=== PATIENT | male | born 1995 | race Caucasian/White ===

== ENCOUNTER 2017-09-17 15:19 | Observation (INO) | payer OTHER ==
[~2017-09-17] VITALS: Ht 180.3 cm; Wt 74.8 kg
--- NOTE | 2017-09-17 15:19 | NUR ---
Patient transferred to bed 8 via wheelchair by bud, accompanied by family. RN evaluating patient at bedside.
--- NOTE | 2017-09-17 15:20 | NUR ---
Dr. Hanks evaluating patient at bedside.
--- NOTE | 2017-09-17 15:20 | NUR ---
pt pulled out of car---unresponsive, no gag reflex,
[2017-09-17 15:23] VITALS: BP 98/64
[2017-09-17] MEDS ORDERED: FLUMAZENIL 0.5 MG/5 ML VIAL IVP STA ×2 (15:33)
[2017-09-17] MEDS ORDERED: ONDANSETRON 4 MG/2 ML VIAL IVP STA (15:35)
[2017-09-17] MEDS ORDERED: FLUMAZENIL 0.5 MG/5 ML VIAL IVP ONE ×2 (15:35→15:39)
[2017-09-17] MEDS ORDERED: NALOXONE PFS 2 MG/2 ML SYR ONE (15:40)
[2017-09-17] MEDS ORDERED: ONDANSETRON 4 MG/2 ML VIAL ONE (15:43)
[2017-09-17] MEDS ORDERED: NACL 0.9% 1,000 ML IV ONE ×2 (15:45→16:25)
[2017-09-17 15:49] LABS: BASOPHILS # (AUTO) 0.2 K/uL (0.00-0.22); HEMATOCRIT 33.1 % (36-52); HEMOGLOBIN 10.9 g/dL (12.0-18.0); MEAN CORPUSCULAR HEMOGLOBIN 29 pg (27-31); MEAN CORPUSCULAR HGB CONC 33 g/dL (33-37); MEAN CORPUSCULAR VOLUME 89 fL (80-94); MONOCYTES # (AUTO) 0.1 K/uL (0.8-1.0); NEUTROPHILS # (AUTO) 1.4 K/uL (1.8-7.7); PLATELET COUNT (AUTO) 197 K/uL (140-450); RED BLOOD CELL COUNT(AUTO) 3.71 MIL/uL (4.20-6.10); RED CELL DISTRIBUTION WIDTH 15.6 % (11.6-13.7); WHITE BLOOD COUNT (AUTO) 2.7 K/uL (4.8-10.8)
--- NOTE | 2017-09-17 15:50 | NUR ---
PT REQUESTED TO GO TO RESTROOM---PROVIDED URINAL TO PT AND INFORMED PT WE FEEL HE IS UNSTEADY AND UNSAFE TO GO TO RESTROOM. SOME PRIVACY PROVIDE, CURTAINS DRAWN. PT SAT TO EDGE OF [facility], REMOVED IV LINE FROM PIV. PT DEMANDED TO LEAVE, DAWNED HIS JACKET. PT IS ORIENTED TO NAME ONLY, UNABLET TO ANSWER YEAR, PLACE, EVENT, OR ANY PHONE NUMBERS TO FRIENDS OR FAMILY. PT UNSTEADY TO STAND BECOMING AGGRESSIVE, THREATENED "I WILL FUCK UP YOU, I DON'T LEAVE". INFORMED PT WE CAN NOT ALLOW HIM TO LEAVE JUST YET DUE TO HIS CONDITION AND THE MEDICATION WE GAVE HIM IS SHORT ACTING AND HE MAY PASS OUT AGAIN AND HURT HIMSELF. PT REMAINS AGGRESSIVE AND UNCOOPERATIVE. YOBANY EMT PLACED AT BEDSIDE TO REDIRECT PT FROM GETTING OUT OF [facility] AND POSSIBLY INJURING HIMSELF.
--- NOTE | 2017-09-17 15:55 | NUR ---
patient is alert but confused, unable to safely navigate the community, is not able to communicate in complete sentences, or thoughts. Paitient is unsafe on his own and is trying to leave. Patient has been educated that the medicine he was given for his overdose only works for short periods of time, he is not comprehending this information nor that he is in an unsafe situation at this moment. [facility] at [facility] as well as security.
[2017-09-17 15:58] LABS: CARBON DIOXIDE 34.1 mmol/L (21-32); CREATININE 1.1 mg/dL (0.7-1.3); POTASSIUM 4.1 mmol/L (3.5-5.1)
[2017-09-17 16:03] LABS: ACETAMINOPHEN < 0.5 ug/ml (10-30); ALBUMIN 3.6 g/dL (3.4-5.0); SALICYLATE < 2.8 mg/dL (2.8-20.0)
--- NOTE | 2017-09-17 16:08 | NUR ---
SECURITY CALLED, PT BECOMING CONFRONTATIONAL. REMAINS ALTERED, NOTIFIED.
--- NOTE | 2017-09-17 16:09 | NUR ---
patient refusing to stay in bed, attempting to leave in an usafe condition, all attempts to talk patient out of leaving were failed. Patient severly confused, patient placed back in bed and placed in 3 point restraints for his safety. Restraints placed on bilat wrists and right ankle. EMT at bedside as a sitter
--- NOTE | 2017-09-17 16:32 | NUR ---
ATTEMPTED TO CALL PT'S BROTHER LISTED ON PT'S FACE SHEET---[phone] LEFT MESSAGE TO RETURN CALL TO [facility] [phone]
--- NOTE | 2017-09-17 16:41 | NUR ---
patient resting in bed, restraints continue to be monitered, able to fit 1-2 fingers underneath each restraint. All extremities are WNL. Patient is not in resperatory distress at this time. EMT at bedside as a sitter
--- NOTE | 2017-09-17 16:57 | NUR ---
Restraints removed, patient sleeping in bed, ER Dr. Hanks at bedside re-evaluating patient
--- NOTE | 2017-09-17 17:51 | NUR ---
patient sleeping in bed, no resperatory distress, head of bed raised at 30 degree angle.
[2017-09-17] MEDS ORDERED: ONDANSETRON 4 MG/2 ML VIAL IVP PRN (18:30)
[2017-09-17] MEDS ORDERED: POTASSIUM CHLORIDE 40 MEQ, LIDOCAINE 1% 25 MG in NACL 0.9% 250 ML IV PRN (18:30)
[2017-09-17] MEDS ORDERED: MAGNESIUM OXIDE 400 MG TAB PO PRN (18:30)
[2017-09-17] MEDS ORDERED: MAG SULF 2000 MG/WATER PREMIX 50 ML IV PRN (18:30)
[2017-09-17] MEDS ORDERED: POTASSIUM CHLORIDE 10 MEQ TABER PO PRN (18:30)
[2017-09-17] MEDS ORDERED: DEXT 5% / NACL 0.9% 500 ML IV ONE (18:30)
[2017-09-17] MEDS ORDERED: IPRATROPIUM 0.02% 0.5 MG/2.5 ML NEBU INH PRN (18:30)
[2017-09-17] MEDS ORDERED: guaiFENesin DM 200/20 MG-10 ML 10 ML UDC PO PRN (18:30)
[2017-09-17] MEDS ORDERED: LORazepam 2 MG/ML VIAL IVP PRN (18:30)
[2017-09-17] MEDS ORDERED: ALBUTEROL 0.083% 2.5 MG/3 ML NEBU INH PRN (18:30)
[2017-09-17] MEDS ORDERED: ACETAMINOPHEN 325 MG TAB PO PRN (18:30)
[2017-09-17] MEDS ORDERED: ACETAMINOPHEN 650 MG SUPP RC PRN (18:30)
[2017-09-17 18:36] LABS: APPEARANCE,URINE CLEAR (CLEAR); BILIRUBIN,URINE NEGATIVE (NEGATIVE); BLOOD, URINE NEGATIVE (NEGATIVE); COLOR,URINE YELLOW (YELLOW); LEUKOCYTE ESTERASE ,URINE NEGATIVE (NEGATIVE); NITRITE, URINE NEGATIVE (NEGATIVE); UGLUCOSE NEGATIVE (NEGATIVE)
[2017-09-17 18:48] LABS: BARBITURATE, URINE NEG. ng/ml (NEG <=200); BENZODIAZEPINE, URINE POS. ng/mL (NEG <=200); CANNABINOID, URINE NEG. ng/mL (NEG <=50); COCAINE, URINE NEG. ng/mL (NEG <=300); OPIATE, URINE POS. ng/mL (NEG <=2000); PHENCYCLIDINE SCREEN,URINE NEG. ng/mL (NEG <=25)
--- NOTE | 2017-09-17 18:48 | NUR ---
Pt report given to Alissa. Transfer of care at this time.
[2017-09-17 19:15] VITALS: BP 109/65
--- NOTE | 2017-09-17 19:15 | NUR ---
PATIENT ADMITTED TO THE UNIT FROM ER VIA [place]. RECEIVED REPORT FROM MORNING NURSE. PATIENT ASLEEP, BUT AROUSABLE. NO SIGNS AND SYMPTOMS OF DISTRESS NOTED. VITAL SIGNS WITHIN NORMAL LIMITS. IV SITE NOTED ON LEFT AC, SALINE LOCKED. PATIENT ON O2 3L NC. BED IN LOWEST POSITION, SIDE RAILS UP AND CALL LIGHT WITHIN REACH. WILL CONTINUE TO MONITOR.
--- NOTE | 2017-09-17 19:48 | NUR ---
IVF D5NS 500ML STARTED, TO RUN AT 100ML/HR.
[2017-09-17 20:00] VITALS: BP 111/69
--- NOTE | 2017-09-17 22:00 | NUR ---
CHECKED ON PATIENT. PATIENT IS STILL SLEEPING. NO SIGNS AND SYMPTOMS OF DISTRESS NOTED. BED IN LOWEST POSITION, SIDE RAILS UP AND CALL LIGHT WITHIN REACH
--- NOTE | 2017-09-17 23:29 | NUR ---
IVF D5NS 500ML STARTED, TO RUN AT 100ML/HR. Addendum: 09/18/17 at 0154 by Wilfredo White RN WRONG TIME. IVF STARTED AT 1947
[2017-09-18] VITALS: BP 123/92
--- NOTE | 2017-09-18 00:48 | NUR ---
IVF D5NS 500ML FINISHED
--- NOTE | 2017-09-18 01:00 | NUR ---
CHECKED ON PATIENT, PATIENT VOIDED IN PANTS. COMMERCIAL RETOUCHER ASSISTED WITH CHANGE OF SHEETS AND GOWN. PATIENT WAS ABLE TO WAKE UP FOR A SHORT TIME. WE EXPLAINED THAT WE WERE CHANGING THE SOAKED SHEETS. PATIENT VERBALIZED UNDERSTANDING.
--- NOTE | 2017-09-18 01:37 | NUR ---
DR. WANG NOTIFIED OF PATIENT'S CALCIUM LEVEL OF 8.3. ORDERS RECEIVED.
--- NOTE | 2017-09-18 02:53 | NUR ---
AFTER I CAME BACK FROM BREAK, I CHECKED ON PATIENT. MEDICAL ASSISTANT OB GYN REPORTED THAT PATIENT TRIED GETTING OUT OF BED TO USE RESTROOM. PATIENT WAS CONFUSED AND HIS GAIT WAS UNSTEADY SO THE MEDICAL ASSISTANT OB GYN TRIED TO ASSIST PATIENT TO USE URINAL INSTEAD. PATIENT WAS UNCOOPERATIVE AND STILL TRIED GETTING OUT OF BED. HE WALKED TO THE RESTROOM, WHILE THE MEDICAL ASSISTANT OB GYN ASSISTED HIM. MEDICAL ASSISTANT OB GYN REPORTED THAT SHE CALLED FOR HELP FROM [employer] DEVELOPER AND CHARGE NURSE. PATIENT BECAME AGITATED AND COMBATIVE, SO SECURITY WAS CALLED. SECURITY WAS ABLE TO TALK TO PATIENT AND GET HIM BACK INTO BED. PATIENT GIVEN ATIVAN BY CHARGE NURSEDAMARI.
--- NOTE | 2017-09-18 03:00 | NUR ---
PT WOKE UP.HE GOT OOB AND VOIDED ON THE FLOOR.WENT TO BATHROOM AND DIDN'T WANT TO GET OUT OF BATHROOM.HIS NURSE WAS ON BREAK AND GARCIA HOOD COVERED HER.SHE WAS AT PT'S BED SIDE.CALLED SECURITY AND THEY BROUGHT PT OUT.HE WAS VERY AGITATED.I GIVEN ATIVAN 0.5MG IVP.NOW IS STARTED GETTING CALM.
[2017-09-18 04:00] VITALS: BP 109/72
--- NOTE | 2017-09-18 04:16 | NUR ---
CHECKED ON PATIENT, PATIENT IS ASLEEP. NO SIGNS AND SYMPTOMS OF DISTRESS NOTED. BED IN LOWEST POSITION, SIDE RAILS UP AND CALL LIGHT WITHIN REACH.
[2017-09-18 07:31] LABS: BASOPHILS # (AUTO) 0.1 K/uL (0.00-0.22); BASOPHILS % (AUTO) 1.9 % (0.0-2.0); EOSINOPHILS # (AUTO) 0.1 K/uL (0-0.4); EOSINOPHILS % (AUTO) 1.1 % (0.0-4.0); HEMATOCRIT 42.8 % (36-52); HEMOGLOBIN 14.3 g/dL (12.0-18.0); LYMPHOCYTES # (AUTO) 0.9 K/uL (2.0-11.5); LYMPHOCYTES % (AUTO) 12.5 % (20.5-51.1); MEAN CORPUSCULAR HEMOGLOBIN 30 pg (27-31); MEAN CORPUSCULAR HGB CONC 34 g/dL (33-37); MEAN CORPUSCULAR VOLUME 90 fL (80-94); MONOCYTES # (AUTO) 0.3 K/uL (0.8-1.0); MONOCYTES % (AUTO) 4.5 % (1.7-9.3); NEUTROPHILS # (AUTO) 5.5 K/uL (1.8-7.7); PLATELET COUNT (AUTO) 184 K/uL (140-450); RED BLOOD CELL COUNT(AUTO) 4.77 MIL/uL (4.20-6.10); RED CELL DISTRIBUTION WIDTH 15.1 % (11.6-13.7); WHITE BLOOD COUNT (AUTO) 6.9 K/uL (4.8-10.8)
--- NOTE | 2017-09-18 07:35 | NUR ---
PATIENT REPORT GIVEN TO MORNING NURSE AT BEDSIDE. PATIENT IS IN STABLE CONDITION
--- NOTE | 2017-09-18 07:36 | NUR ---
RECEIVED REPORT FROM THE MECHANICAL SHOP LABORER NURSE AT BEDSIDE FOR CONTINUITY OF CARE. PT IS SLEEPING SOUNDLY. NO SIGNS OF DISTRESS. WOKE UP PT TO INTRODUCE MYSELF AND UPDATE THE BOARD. V/S WITHIN NORMAL RANGE. C/O BEING COLD. GOT HIM A WARM BLANKET. PT JUST WANTS TO SLEEP. BREAKFAST TRAY ON THE SIDE TABLE. NOT TOUCHED. PER MECHANICAL SHOP LABORER NURSE, PT HAS R KNEE ABRASION WHICH HAS HEALED AND R WRIST SMALL SCRATCH. ASIDE FROM THAT, SKIN IS INTACT. PT ON ROOM AIR, SATING AT 100%. NOTED THE IV ON L AC 16G SL. WILL ASK THE MD ABOUT FLUIDS WHEN HE ARRIVES. WILL CONTINUE TO MONITOR PT.
[2017-09-18 08:00] VITALS: BP 104/57
[2017-09-18 08:01] LABS: PROTHROMBIN TIME 10.5 secs (10.8-13.4)
[2017-09-18 08:37] LABS: ALBUMIN 3.9 g/dL (3.4-5.0); ANION GAP 12.3 (8-16); CARBON DIOXIDE 30.8 mmol/L (21-32); MAGNESIUM 1.7 mg/dL (1.8-2.4); POTASSIUM 4.1 mmol/L (3.5-5.1); THYROID STIMULATING HORMONE 0.76 uIU/mL (0.34-3.74); TOTAL BILIRUBIN 1.3 mg/dL (0.0-1.0)
[2017-09-18] MEDS ORDERED: DEXT 5% / NACL 0.45% 1,000 ML IV SCH (09:10)
--- NOTE | 2017-09-18 09:10 | NUR ---
DR. HODGES ORDERED FLUIDS FOR PT. MAG LOW AT 1.7. MAG OX STANDING ORDER. WILL ADMINISTER.
--- NOTE | 2017-09-18 09:41 | NUR ---
0939 STARTED IV FLUIDS D5 1/2 NS AT 100ML. ADMINISTERED MAG OX FOR LOW MAG LEVEL. PT TOLERATED WELL. PT ATE 100% OF BREAKFAST AND AMBULATED TO THE BATHROOM. PT IS ALERT AND ORIENTED X 3. WILL CONTINUE TO MONITOR PT.
--- NOTE | 2017-09-18 10:19 | NUR ---
PATIENT HAS BEEN SCREENED AND CATEGORIZED LOW NUTRITION RISK. PATIENT WILL BE SEEN WITHIN 7 DAYS OF ADMISSION. 09/24/[address]
[2017-09-18] MEDS ORDERED: ACET-2619 PO (11:26)
[2017-09-18] MEDS ORDERED: ONDA4TAB PO (11:27)
--- NOTE | 2017-09-18 11:32 | NUR ---
PT SLEEPING SOUNDLY. NO SIGNS OF DISTRESS. WILL CONTINUE TO MONITOR.
[2017-09-18 12:00] VITALS: BP 113/70
--- NOTE | 2017-09-18 12:31 | NUR ---
NO LUNCH TRAY. CALLED [facility] TO BRING LATE TRAY. PT WAITING.
--- NOTE | 2017-09-18 13:45 | NUR ---
CALLED DR HODGES. PT READY TO LEAVE. PT HAD EATEN BREAKFAST AND LUNCH. NO NAUSEA OR VOMITING. AMBULATED TO AND FROM THE BATHROOM. STEADY GAIT. D/C ORDERS GIVEN. RX IN THE CHART. WILL PROCESS HIS D/C.
--- NOTE | 2017-09-18 13:50 | NUR ---
1350: IVF D/C'D. PT PULLED OUT THE IV. CANNULA INTACT. NO BLEEDING NOTED.
--- NOTE | 2017-09-18 14:10 | NUR ---
D/C INSTRUCTIONS GIVEN. PT VERBALIZED UNDERSTANDING. GAVE HIM PRESCRIPTION OF TYLENOL AND ZOFRAN. GAVE HIM A PAIR OF PANTS FROM SECURITY CLOSET. GATHERED ALL HIS PERSONAL BELONGINGS. IV WAS ALREADY PULLED OUT BY PATIENT, CANNULA INTACT. ID BAND RIPPED OFF. WALKED HIM INTO THE LOBBY. HE STATED HE WILL WALK HOME. ONCE WE GOT TO THE LOBBY, HE WANTED TO MAKE A PHONE CALL FOR A RIDE. LEFT HIM IN THE LOBBY.
== END 2017-09-18 14:10 | disposition home or self-care (01) ==
LOC: MED 15:19 → MTU 18:27
PROVIDERS: ADMIT Hospitalist; ATTEND Hospitalist
DX: F10.129 Alcohol abuse with intoxication, unspecified (principal); T42.4X5A Adverse effect of benzodiazepines, initial encounter; E86.0 Dehydration; R11.10 Vomiting, unspecified; Y92.89 Other specified places as the place of occurrence of the external cause
CPT/HCPCS: 36415; 80053; 80305; 81003; 82140; 82330; 83735; 84436; 84443; 85025; 85610; 85730; 87081; 94760; 96361; 96374; 96375; 99285; C1758; G0378; G0480; G0482; J2060; J2405; J3490; J7030; J7042; 93005; J2310